=== PATIENT | male | born 2000 | race Caucasian/White ===

== ENCOUNTER 2023-04-25 20:10 | Emergency (ER) | payer BC, SELFPAY ==
[2023-04-25 20:14] VITALS: BP 183/97; PULSE 101; RESP 20; TEMP 37.1; O2SAT 99; BMI 28.9
--- NOTE | 2023-04-25 20:36 | US_ITS ---
The [address] [address] Patient Name: DIONNA CHAMBERS III MRN: [id number] date: 2000 Sex: M Assigned Patient Location: ER Current Patient Location: ER Accession/Order Number: [id number] Exam Date: 04/25/2023 21:04 Report Date: 04/25/2023 22:43 At the request of: HALIMA SOMMERS Procedure: US venous doppler UE BI ULTRASOUND OF THE UPPER EXTREMITY VENOUS RIGHT HISTORY: Extremity edema and pain. COMPARISON: None. TECHNIQUE: Multiple sonographic images are performed of the extremity venous system with both color Doppler and grayscale Doppler. Doppler spectral analysis and color flow were performed of the extremity. FINDINGS: There is no evidence of thrombus within the visualized veins. There is adequate phasic and spontaneous flow. There is adequate compression. There is adequate augmentation. No evidence of DVT within the visualized veins of the visualized extremity. No popliteal fluid collection. US/US venous doppler UE BI IMPRESSION: No evidence of DVT within visualized veins. Electronically authenticated by: NILDA CALHOUN Date: 04/25/2023 22:43
--- NOTE | 2023-04-25 20:47 | ED.GENADUL1 ---
HPI - General Adult General Chief complaint: Extremity Problem, Nontraumatic Stated complaint: UE EDEMA Time Seen by Provider: 04/25/23 20:27 Source: patient Mode of arrival: walk-in Limitations: no limitations History of Present Illness HPI narrative: 22-year-old male to the emergency department with chief complaint of swelling to his bilateral upper extremities. Patient reports that he worked out for the 1st time In a while of days ago. He reports some swelling in his bilateral upper extremity since that time. Denies any chest pain or shortness of breath. He was seen in urgent care in [place] and was referred to emergency department for evaluation. No history of blood clots. No family history of blood clots. No other complaints. Related Data Home Medications Medication Instructions Recorded Confirmed No Known Home Medications 04/25/23 04/25/23 Allergies Allergy/AdvReac Type Severity Reaction Status Date / Time No Known Drug Allergies Allergy Verified 04/25/23 20:19 Review of Systems ROS Status of ROS 10 or more systems reviewed and unremarkable except as noted in history and below [facility] Social History Smoking status: Never smoker Exam Narrative Exam Narrative: VITALS: I have reviewed the triage vital signs. GENERAL: Well developed, well appearing adult in no acute distress. NEURO: Alert and oriented. Moves all extremities. Face is symmetric and expressive. EYES: PERRL. No scleral icterus or conjunctival injection. No discharge. HENT: Normocephalic, atraumatic. Hearing is grossly intact. Nares grossly patent and without discharge. Mucous membranes moist. NECK: No JVD. Patient moves neck without restriction. CARDIO: Rhythm regular. Normal rate. No murmur, rub, or gallop. Pulses equal bilaterally in the upper and lower extremity. No lower extremity edema. PULM: Lungs clear to auscultation in all sweeney. No wheezes, rales, or rhonchi. No conversational dyspnea. No splinting, stridor, or accessory muscle use. BLT Upper Extremity: Radial Pulse is intact. Limb is similar color and temperature to the contralateral limb. No edema. No ecchymosis. No laceration. No abrasion. No deformity. No bony tenderness. Metal Pattern [employer] strength, finger abduction/adduction, wrist extension intact. Normal ROM of wrist, elbow, shoulder. : Symmetrical muscle bulk. No joint swelling. No erythema or warmth. There is mild edema about the bilateral upper arms. Compartments are soft. Distal pulses are intact. His similar color or temperature of the contralateral extremities. SKIN: Warm and dry. Normal turgor. No rash or lesions appreciated. PSYCH: Mood, affect, and interaction is appropriate to the setting. Constitutional Vital Signs, click to edit/add: Last Vital Signs Temp 98.8 F 04/25/23 20:14 Pulse 77 04/25/23 23:30 Resp 20 04/25/23 20:14 BP 157/89 H 04/25/23 23:30 Pulse Ox 98 04/25/23 23:30 O2 Del Method Room Air 04/25/23 20:14 Course Vital Signs Vital signs: Vital Signs Temperature 98.8 F 04/25/23 20:14 Pulse Rate 101 H 04/25/23 20:14 Respiratory Rate 20 04/25/23 20:14 Blood Pressure 183/97 H 04/25/23 20:14 Pulse Oximetry 99 04/25/23 20:14 Oxygen Delivery Method Room Air 04/25/23 20:14 Temperature 98.8 F 04/25/23 20:14 Pulse Rate 77 04/25/23 23:30 Respiratory Rate 20 04/25/23 20:14 Blood Pressure 157/89 H 04/25/23 23:30 Pulse Oximetry 98 04/25/23 23:30 Oxygen Delivery Method Room Air 04/25/23 20:14 Medical Decision Making MDM Narrative Medical decision making narrative: 22-year-old male to the emergency department chief complaint of bilateral upper extremity swelling after working out. He is neurovascularly intact. There is no evidence of compartment syndrome. He has swelling that is not painful. We'll order an upper extremity duplex to rule out exertional deep vein thrombosis. Patient agrees with this plan. I suspect that this is just dependent edema. Duplex is negative. Findings discussed with patient. Expectant management.Recommended follow-up with His primary care doctor. Return precautions were discussed. All questions were answered.Patient was discharged home. Discharge Plan Discharge Chief Complaint: Extremity Problem, Nontraumatic Clinical Impression: Edema Patient Disposition: Home, Self-Care Time of Disposition Decision: 23:29 Condition: Good Mode of Transportation: Private Vehicle Prescriptions / Home Meds: No Action No Known Home Medications Print Language: Montserratian Instructions: Edema (ED) Stand Alone Forms: Portal Instructions Referrals: FABRICIO HERNANDEZ [Family Provider] - 1 week (Follow-up with her PCP if the swelling does not resolve. Return to the Emergency Department if it worsens or he develop increasing pain or discoloration of the arms.) Physician,Non-Staff, [Primary Care Provider] - 1 week Discharge Date/Time: 04/25/23 23:36
[2023-04-25 23:30] VITALS: BP 157/89; PULSE 77; O2SAT 98
== END 2023-04-25 23:36 | disposition home or self-care (01) ==
PROVIDERS: Emergency Provider Student in an Organized Health Care Education/Training Program
DX: R60.9 Edema, unspecified (principal)
CPT/HCPCS: 93970; 99284